=== PATIENT | male | born 1985 | race Caucasian/White ===

== ENCOUNTER 2017-05-31 09:33 | Emergency (ER) | payer SELFPAY ==
--- NOTE | 2017-05-31 09:49 | EDM.PDOC ---
ED HPI GENERAL MEDICAL PROBLEM - General Stated Complaint: RIGHT PINKIE FINGER PAIN Time Seen by Provider: 05/31/17 09:48 Source of Information: Reports: Patient History Limitations: Reports: No Limitations - History of Present Illness INITIAL COMMENTS - FREE TEXT/NARRATIVE: HISTORY AND PHYSICAL: History of present illness: Patient is a 32-year-old male who presents to the emergency room today with complaints of right fifth digit pain. Patient reports that his daughter jumped off couch and landed in his hands resulting in jamming his affected finger. Since this occurred he has had increased pain, swelling, and limited flexion. Patient denies any chest pain, shortness of breath, change in vision, nausea, vomiting or diarrhea. Denies any previous injury to the affected extremity. Review of systems: As per history of present illness and below otherwise all systems reviewed and negative. Past medical history: As per history of present illness and as reviewed below otherwise noncontributory. Surgical history: As per history of present illness and as reviewed below otherwise noncontributory. Social history: No reported history of drug or alcohol abuse. Family history: As per history of present illness and as reviewed below otherwise noncontributory. Physical exam: Gen.: Nontoxic-appearing 32-year-old male. We'll do speak in full sentences without shortness of breath. Alert and oriented HEENT: Atraumatic, normocephalic, pupils reactive, negative for conjunctival pallor or scleral icterus, mucous membranes moist, throat clear, neck supple, nontender, trachea midline. Lungs: Clear to auscultation, breath sounds equal bilaterally, chest nontender. Heart: S1S2, regular rate and rhythm Abdomen: Soft, nondistended, nontender. Negative for masses. Negative for costovertebral tenderness. Pelvis: Stable nontender. Genitourinary: Deferred. Rectal: Deferred. Extremities/Skin: Mild swelling noted to the right fifth digit. Increased pain with flexion of the affected finger. Skin is intact, warm, dry. negative for cords or calf pain. Neurovascular unremarkable. Neuro: Awake, alert, oriented. Cranial nerves II through XII unremarkable. Cerebellum unremarkable. Motor and sensory unremarkable throughout. Exam nonfocal. Discussed radiology findings with patient. Started to use the spoon splint and connor tape for comfort. Like the patient to follow-up with the orthopedic provider, patient voices understanding. For the patient something stronger than Tylenol and/or ibuprofen, patient declined at this time. Patient voices understanding and denies any further questions at this time, discharge pending. Diagnostics: X-ray fifth digit of right hand Therapeutics: Ice, spoon splint and connor tape Impression: Non-displaced fracture of right 5th digit Plan: 1. Please use the spoon splint as directed and discussed. 2. Apply ice to the affected area and allowed to rest. 3. Please take Tylenol and/or ibuprofen as directed for pain control. 4. Follow-up with your primary care provider in the next 1-2 days. He continued to have problems with the affected extremity please follow-up with orthopedics. Return to the ED as needed as discussed. Definitive disposition and diagnosis as appropriate pending reevaluation and review of above. Onset: Today Onset Date: 05/31/17 Right 5-Little finger Pain Score (Numeric/FACES): 6 - Related Data Allergies Allergy/AdvReac Type Severity Reaction Status Date / Time amoxicillin Allergy Airway Verified 05/31/17 10:00 Tightness clindamycin Allergy Anaphylactic Verified 05/31/17 10:00 Shock Penicillins Allergy Anaphylactic Verified 05/31/17 10:00 Shock Home Meds: Home Meds . 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 Cardiovascular History: Reports: Hypertension - Past Surgical History Musculoskeletal Surgical History: Reports: Other (See Below) Social & Family History - Family History Family Medical History: Noncontributory - Tobacco Use Smoking Status *Q: Current Every Day Smoker Years of Tobacco use: 10 Packs/Tins Daily: 0.5 - Caffeine Use Caffeine Use: Reports: None - Recreational Drug Use Recreational Drug Use: No ED ROS GENERAL - Review of Systems Review Of Systems: ROS reveals no pertinent complaints other than HPI. ED EXAM, GENERAL - Physical Exam Exam: See Below (See dictation) Course - Vital Signs Last Recorded V/S: Last Vital Signs Temp 35.8 C 05/31/17 09:55 Pulse 74 05/31/17 09:55 Resp 16 05/31/17 09:55 BP 145/104 H 05/31/17 09:55 Pulse Ox 97 05/31/17 09:55 Departure - Departure Time of Disposition: 10:20 Disposition: Home, Self-Care 01 Clinical Impression: Nondisplaced fracture of phalanx of finger of right hand Finger injury Qualifiers: Encounter type: initial encounter Laterality: right Qualified Code(s): S69.91XA - Unspecified injury of right wrist, hand and finger(s), initial encounter - Discharge Information Referrals: PCP,None [Primary Care Provider] - Additional Instructions: My general discharge The following information is given to patients seen in the emergency department who are being discharged to home. This information is to outline your options for follow-up care. We provide all patients seen in our emergency department with a follow-up referral. The need for follow-up, as well as the timing and circumstances, are variable depending upon the specifics of your emergency department visit. If you don't have a primary care physician on staff, we will provide you with a referral. We always advise you to contact your personal physician following an emergency department visit to inform them of the circumstance of the visit and for follow-up with them and/or the need for any referrals to a consulting specialist. The emergency department will also refer you to a specialist when appropriate. This referral assures that you have the opportunity for follow-up care with a specialist. All of these measure are taken in an effort to provide you with optimal care, which includes your follow-up. Under all circumstances we always encourage you to contact your private physician who remains a resource for coordinating your care. When calling for follow-up care, please make the office aware that this follow-up is from your recent emergency room visit. If for any reason you are refused follow-up, please contact the [facility] Emergency Department at and asked to speak to the emergency department charge nurse. [facility] [address] [place] [id number] [facility] - [facility] Professional Building [address] [place] [address], [address] [place] [address] 1. Please use the spoon splint as directed and discussed. 2. Apply ice to the affected area and allowed to rest. 3. Please take Tylenol and/or ibuprofen as directed for pain control. 4. Follow-up with your primary care provider in the next 1-2 days. If you continue to have problems with the affected extremity please follow-up with orthopedics. Return to the ED as needed as discussed.
--- NOTE | 2017-05-31 11:14 | CR ---
EXAMINATION: Right hand, fifth digit HISTORY: Injury COMPARISON: 09/27/2008 TECHNIQUE: 3 views FINDINGS/IMPRESSION: There is a small nondisplaced dorsal plate fracture involving the proximal metap hysis of the distal fifth phalanx. Screw and plate hardware is noted fixating a well-healed fifth met acarpal fracture. Remaining osseous structures and joint spaces appear grossly intact.
[2017-05-31 11:49] VITALS: BP 142/101
== END 2017-05-31 11:50 | disposition home or self-care (01) ==
LOC: MW.ED 09:33
DX: S62.666A Nondisplaced fracture of distal phalanx of right little finger, initial encounter for closed fracture (principal); I10 Essential (primary) hypertension; Z88.0 Allergy status to penicillin; Z88.1 Allergy status to other antibiotic agents; W52.XXXA Crushed, pushed or stepped on by crowd or human stampede, initial encounter
CPT/HCPCS: 73140-26-F9; 73140-F9; 99282; 99283

== ENCOUNTER 2017-10-27 11:23 | Emergency (ER) | payer SELFPAY ==
[2017-10-27 11:49] VITALS: BP 139/101
--- NOTE | 2017-10-27 12:04 | EDM.PDOC ---
ED HPI GENERAL MEDICAL PROBLEM - General Chief Complaint: Lower Extremity Injury/Pain Stated Complaint: R LEG PAIN Time Seen by Provider: 10/27/17 11:32 Source of Information: Reports: Patient History Limitations: Reports: No Limitations - History of Present Illness INITIAL COMMENTS - FREE TEXT/NARRATIVE: HISTORY AND PHYSICAL: History of present illness: Patient is a 32-year-old male who presents to the emergency room today with complaints of right knee pain. He states he was ambulating and "twisted wrong" and felt immediate pain to his right lateral knee. Immediately after the injury he states he was unable to bear weight on it. Since that time he has taken Tylenol and ibuprofen and still has had no relief. Denies any numbness or tingling to the affected extremity. Denies any previous injury, trauma or surgeries to the affected extremity. Review of systems: As per history of present illness and below otherwise all systems reviewed and negative. Past medical history: As per history of present illness and as reviewed below otherwise noncontributory. Surgical history: As per history of present illness and as reviewed below otherwise noncontributory. Social history: No reported history of drug or alcohol abuse. Family history: As per history of present illness and as reviewed below otherwise noncontributory. Physical exam: General: Developed and well-nourished 32-year-old male. Alert and oriented. Nontoxic appearing and in no acute distress. HEENT: Atraumatic, normocephalic, pupils reactive, negative for conjunctival pallor or scleral icterus, mucous membranes moist, throat clear, neck supple, nontender, trachea midline. Lungs: Clear to auscultation, breath sounds equal bilaterally, chest nontender. Heart: S1S2, regular, negative for clicks, rubs, or JVD. Abdomen: Soft, nondistended, nontender. Negative for masses or hepatosplenomegaly. Negative for costovertebral tenderness. Pelvis: Stable nontender. Genitourinary: Deferred. Rectal: Deferred. Extremities: Atraumatic, moves all extremities per self, good flexion and extension of the right knee and ankle. No Achilles tendon involvement. Mild tenderness to the right lateral knee. No knee instability noted. Strong pedal pulses bilaterally. He is negative for cords or calf pain. Neurovascular unremarkable. Skin: No soft tissue swelling or redness noted. Intact, warm, dry. Neuro: Awake, alert, oriented. Cranial nerves II through XII unremarkable. Cerebellum unremarkable. Motor and sensory unremarkable throughout. Exam nonfocal. X-ray shows no acute abnormality, dislocation or fracture. There is no soft tissue swelling or joint effusion. We'll place the patient in a knee immobilizer and offered crutches. Prescription for tramadol, one tab every 4-6 hours as needed, dispense 20, no refill. If the patient continues to have pain he may need to follow up with orthopedic provider for further imaging. He voices understanding and is agreeable to plan of care. He denies any further questions at this time. Diagnostics: Right knee x-ray Therapeutics: Knee immobilizer, crutches, ice Impression: Right knee injury Plan: 1. Tramadol one tab every 4-6 hours as needed. This medication may cause drowsiness so do not take it while driving or needing to be functioning at work. He may take Tylenol and/or ibuprofen if needed. Rest, ice and elevated the extremity for the next 3-5 days. 2. Please use the crutches and splint for the next 3-5 days. 3. Follow-up with the orthopedic provider as we discussed. Return to the ED as needed and as discussed. Definitive disposition and diagnosis as appropriate pending reevaluation and review of above. Right Knee Pain Score (Numeric/FACES): 8 - Related Data Allergies Allergy/AdvReac Type Severity Reaction Status Date / Time amoxicillin Allergy Airway Verified 10/27/17 11:49 Tightness clindamycin Allergy Anaphylactic Verified 10/27/17 11:49 Shock Penicillins Allergy Anaphylactic Verified 10/27/17 11:49 Shock Home Meds: Home Meds . 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 Cardiovascular History: Reports: Hypertension - Past Surgical History Musculoskeletal Surgical History: Reports: Other (See Below) Social & Family History - Family History Family Medical History: Noncontributory - Tobacco Use Smoking Status *Q: Never Smoker Years of Tobacco use: 10 Packs/Tins Daily: 0.5 Used Tobacco, but Quit: No Second Hand Smoke Exposure: No - Caffeine Use Caffeine Use: Reports: Coffee - Alcohol Use Days Per Week of Alcohol Use: 1 Number of Drinks Per Day: 3 Total Drinks Per Week: 3 - Recreational Drug Use Recreational Drug Use: No Review of Systems - Review of Systems Review Of Systems: ROS reveals no pertinent complaints other than HPI. ED EXAM, GENERAL - Physical Exam Exam: See Below (See dictation) Course - Vital Signs Last Recorded V/S: Last Vital Signs Temp 98.7 F 10/27/17 11:48 Pulse 93 10/27/17 11:48 Resp 20 10/27/17 11:48 BP 139/101 H 10/27/17 11:48 Pulse Ox 98 10/27/17 11:48 - Orders/Labs/Meds Orders: Active Orders 24 hr Category Date Time Status Knee 3V Rt [CR] Stat Exams 10/27/17 11:57 Ordered DME for Discharge [COMM] Stat Oth 10/27/17 12:53 Ordered Departure - Departure Time of Disposition: 12:56 Disposition: Home, Self-Care 01 Clinical Impression: Knee injury Qualifiers: Encounter type: initial encounter Laterality: right Qualified Code(s): S89.91XA - Unspecified injury of right lower leg, initial encounter - Discharge Information Referrals: PCP,None [Primary Care Provider] - Forms: ED Department Discharge Additional Instructions: My general discharge The following information is given to patients seen in the emergency department who are being discharged to home. This information is to outline your options for follow-up care. We provide all patients seen in our emergency department with a follow-up referral. The need for follow-up, as well as the timing and circumstances, are variable depending upon the specifics of your emergency department visit. If you don't have a primary care physician on staff, we will provide you with a referral. We always advise you to contact your personal physician following an emergency department visit to inform them of the circumstance of the visit and for follow-up with them and/or the need for any referrals to a consulting specialist. The emergency department will also refer you to a specialist when appropriate. This referral assures that you have the opportunity for follow-up care with a specialist. All of these measure are taken in an effort to provide you with optimal care, which includes your follow-up. Under all circumstances we always encourage you to contact your private physician who remains a resource for coordinating your care. When calling for follow-up care, please make the office aware that this follow-up is from your recent emergency room visit. If for any reason you are refused follow-up, please contact the [facility] Emergency Department at and asked to speak to the emergency department charge nurse. [facility] [address], [place] [address] [facility] - Orthopedic Clinic Professional Building [address] [place] [address], [address] [place] [address] 1. Tramadol one tab every 4-6 hours as needed. This medication may cause drowsiness so do not take it while driving or needing to be functioning at work. He may take Tylenol and/or ibuprofen if needed. Rest, ice and elevated the extremity for the next 3-5 days. 2. Please use the crutches and splint for the next 3-5 days. 3. Follow-up with the orthopedic provider as we discussed. Return to the ED as needed and as discussed. - My Orders Last 24 Hours: My Active Orders 10/27/17 11:57 Knee 3V Rt [CR] Stat 10/27/17 12:53 DME for Discharge [COMM] Stat - Assessment/Plan Last 24 Hours: My Active Orders 10/27/17 11:57 Knee 3V Rt [CR] Stat 10/27/17 12:53 DME for Discharge [COMM] Stat
--- NOTE | 2017-10-27 13:20 | CR ---
EXAMINATION: Right knee HISTORY: Pain COMPARISON: None TECHNIQUE: 3 views FINDINGS/IMPRESSION: There is no acute osseous abnormality, dislocation, or fracture. Bone mineraliza tion and joint spaces are preserved. No soft tissue swelling or joint effusion.
== END 2017-10-27 13:25 | disposition home or self-care (01) ==
LOC: MW.ED 11:23
DX: S89.91XA Unspecified injury of right lower leg, initial encounter (principal); I10 Essential (primary) hypertension; Z88.1 Allergy status to other antibiotic agents; Z88.0 Allergy status to penicillin; X50.9XXA Other and unspecified overexertion or strenuous movements or postures, initial encounter
CPT/HCPCS: 73562-26-RT; 73562-RT; 99283; 99284

== ENCOUNTER 2018-11-18 09:15 | Emergency (ER) | payer BC ==
--- NOTE | 2018-11-18 10:34 | EDM.PDOC ---
ED HPI GENERAL MEDICAL PROBLEM - General Chief Complaint: ENT Problem Stated Complaint: STREP THROAT Time Seen by Provider: 11/18/18 09:38 Source of Information: Reports: Patient History Limitations: Reports: No Limitations - History of Present Illness INITIAL COMMENTS - FREE TEXT/NARRATIVE: History of present illness: Patient has had 2 days of sore throat that feels like strep. They've been running fevers and chills with no other symptoms. She denies any cough, shortness of breath, congestion or difficulty breathing or swallowing. Review of systems: As per history of present illness and below otherwise all systems reviewed and negative. Past medical history: As per history of present illness and as reviewed below otherwise noncontributory. Surgical history: As per history of present illness and as reviewed below otherwise noncontributory. Social history: No reported history of drug or alcohol abuse. Family history: As per history of present illness and as reviewed below otherwise noncontributory. Physical exam: General: Well developed, well nourished in NAD HEENT: Atraumatic, normocephalic, pupils reactive, negative for conjunctival pallor or scleral icterus, mucous membranes moist, throat clear, neck supple, nontender, trachea midline. Lungs: Clear to auscultation, breath sounds equal bilaterally, chest nontender. Heart: S1S2, regular, negative for clicks, rubs, or JVD. Abdomen: NABS, Soft, nondistended, nontender. Negative for masses or hepatosplenomegaly. Negative for costovertebral tenderness. Pelvis: Stable nontender. Genitourinary: Deferred. Rectal: Deferred. Extremities: Atraumatic, negative for cords or calf pain. Neurovascular unremarkable. Neuro: Awake, alert, oriented. Cranial nerves II through XII unremarkable. Cerebellum unremarkable. Motor and sensory unremarkable throughout. Exam nonfocal. Skin:warm and dry Diagnostics: Rapid strep positive Therapeutics: None ED Course: Unremarkable Impression: Strep pharyngitis Prescriptions: Z-Julien Plan: Take meds as directed, follow up with your primary care physician, return to ER if symptoms worsen or change. Definitive disposition and diagnosis as appropriate pending reevaluation and review of above. 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 Cardiovascular History: Reports: Hypertension - Past Surgical History Musculoskeletal Surgical History: Reports: Other (See Below) Social & Family History - Family History Family Medical History: Noncontributory - Caffeine Use Caffeine Use: Reports: Coffee ED ROS ENT - Review of Systems Review Of Systems: ROS reveals no pertinent complaints other than HPI. ED EXAM, ENT - Physical Exam Exam: Not Obtained (See history of present illness) Departure - Departure Time of Disposition: 10:33 Disposition: Home, Self-Care 01 Condition: Good Clinical Impression: Strep pharyngitis - Discharge Information *PRESCRIPTION DRUG MONITORING PROGRAM REVIEWED*: No *COPY OF PRESCRIPTION DRUG MONITORING REPORT IN PATIENT MARIO: No Prescriptions: Azithromycin [Zithromax] 250 mg PO DAILY #6 tab Referrals: Johnson Henderson MD [Primary Care Provider] - Additional Instructions: The following information is given to patients seen in the emergency department who are being discharged to home. This information is to outline your options for follow-up care. We provide all patients seen in our emergency department with a follow-up referral. The need for follow-up, as well as the timing and circumstances, are variable depending upon the specifics of your emergency department visit. If you don't have a primary care physician on staff, we will provide you with a referral. We always advise you to contact your personal physician following an emergency department visit to inform them of the circumstance of the visit and for follow-up with them and/or the need for any referrals to a consulting specialist. The emergency department will also refer you to a specialist when appropriate. This referral assures that you have the opportunity for follow-up care with a specialist. All of these measure are taken in an effort to provide you with optimal care, which includes your follow-up. Under all circumstances we always encourage you to contact your private physician who remains a resource for coordinating your care. When calling for follow-up care, please make the office aware that this follow-up is from your recent emergency room visit. If for any reason you are refused follow-up, please contact the [facility] Emergency Department at and asked to speak to the emergency department charge nurse. Take meds as directed, follow up with your primary care physician, return to ER if symptoms worsen or change. [facility] [place] [id number]
[2018-11-18 12:59] VITALS: BP 148/88
== END 2018-11-18 10:45 | disposition home or self-care (01) ==
LOC: MW.ED 09:15
DX: J02.0 Streptococcal pharyngitis (principal); I10 Essential (primary) hypertension; Z88.1 Allergy status to other antibiotic agents; Z88.0 Allergy status to penicillin
CPT/HCPCS: 87880-QW; 99283

== ENCOUNTER 2019-01-20 10:01 | Emergency (ER) | payer SELFPAY ==
[2019-01-20] MEDS ORDERED: Ibuprofen 800 MG Tab PO ONE (10:29)
--- NOTE | 2019-01-20 10:31 | EDM.PDOC ---
ED HPI GENERAL MEDICAL PROBLEM - General Chief Complaint: Upper Extremity Injury/Pain Stated Complaint: RT HAND POSSIBLY BROKE Time Seen by Provider: 01/20/19 10:19 Source of Information: Reports: Patient History Limitations: Reports: No Limitations - History of Present Illness INITIAL COMMENTS - FREE TEXT/NARRATIVE: History of present illness: []Patient was told he apparently punched a door last night and arrives with swelling and pain of his right hand. He currently has a plate and screws in this hand, from a previous injury. Review of systems: As per history of present illness and below otherwise all systems reviewed and negative. Past medical history: As per history of present illness and as reviewed below otherwise noncontributory. Surgical history: As per history of present illness and as reviewed below otherwise noncontributory. Social history: No reported history of drug or alcohol abuse. Family history: As per history of present illness and as reviewed below otherwise noncontributory. Physical exam: General: Well developed, well nourished in NAD HEENT: Atraumatic, normocephalic, pupils reactive, negative for conjunctival pallor or scleral icterus, mucous membranes moist, throat clear, neck supple, nontender, trachea midline. Lungs: Clear to auscultation, breath sounds equal bilaterally, chest nontender. Heart: S1S2, regular, negative for clicks, rubs, or JVD. Abdomen: NABS, Soft, nondistended, nontender. Negative for masses or hepatosplenomegaly. Negative for costovertebral tenderness. Pelvis: Stable nontender. Genitourinary: Deferred. Rectal: Deferred. Extremities: Swelling over the fifth metacarpal with ecchymosis noted is brisk capillary refill distally and sensation is intact, negative for cords or calf pain. Neurovascular unremarkable. Neuro: Awake, alert, oriented. Cranial nerves II through XII unremarkable. Cerebellum unremarkable. Motor and sensory unremarkable throughout. Exam nonfocal. Skin:warm and dry Diagnostics: X-ray right hand-distal fifth metacarpal fracture Therapeutics: Ibuprofen on a splint ED Course: Stable Impression: Right Distal ulnar metacarpal fracture Prescriptions: Diclofenac Plan: Follow-up with hand surgery Definitive disposition and diagnosis as appropriate pending reevaluation and review of above. 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 Cardiovascular History: Reports: Hypertension - Infectious Disease History Infectious Disease History: Reports: Chicken Pox - Past Surgical History Musculoskeletal Surgical History: Reports: Other (See Below) Social & Family History - Family History Family Medical History: Noncontributory - Caffeine Use Caffeine Use: Reports: Coffee Review of Systems - Review of Systems Review Of Systems: ROS reveals no pertinent complaints other than HPI. ED EXAM, GENERAL - Physical Exam Exam: See Below (See history of present illness) Course - Vital Signs Last Recorded V/S: Last Vital Signs Temp 97.8 F 01/20/19 10:45 Pulse 96 01/20/19 10:45 Resp 16 01/20/19 10:45 BP 155/102 H 01/20/19 10:45 Pulse Ox 97 01/20/19 10:45 - Orders/Labs/Meds Orders: Active Orders 24 hr Category Date Time Status Hand Comp Min 3V Rt [CR] Stat Exams 01/20/19 10:19 Taken Meds: Medications Discontinued Medications Generic Name Dose Route Start Last Admin Trade Name Freq PRN Reason Stop Dose Admin Ibuprofen 800 mg 01/20/19 10:29 Motrin PO 01/20/19 10:30 ONETIME ONE Departure - Departure Time of Disposition: 11:09 Disposition: Home, Self-Care 01 Condition: Good Clinical Impression: Fracture of fifth metacarpal bone of right hand Qualifiers: Encounter type: initial encounter Fracture type: closed Metacarpal location: unspecified portion of metacarpal Fracture alignment: nondisplaced Qualified Code(s): S62.306A - Unspecified fracture of fifth metacarpal bone, right hand, initial encounter for closed fracture - Discharge Information *PRESCRIPTION DRUG MONITORING PROGRAM REVIEWED*: No *COPY OF PRESCRIPTION DRUG MONITORING REPORT IN PATIENT MARIO: No Prescriptions: Diclofenac Sodium [Voltaren] 75 mg PO BIDMEALS PRN #20 tab.cr PRN Reason: Pain Referrals: PCP,None [Primary Care Provider] - Forms: ED Department Discharge Additional Instructions: The following information is given to patients seen in the emergency department who are being discharged to home. This information is to outline your options for follow-up care. We provide all patients seen in our emergency department with a follow-up referral. The need for follow-up, as well as the timing and circumstances, are variable depending upon the specifics of your emergency department visit. If you don't have a primary care physician on staff, we will provide you with a referral. We always advise you to contact your personal physician following an emergency department visit to inform them of the circumstance of the visit and for follow-up with them and/or the need for any referrals to a consulting specialist. The emergency department will also refer you to a specialist when appropriate. This referral assures that you have the opportunity for follow-up care with a specialist. All of these measure are taken in an effort to provide you with optimal care, which includes your follow-up. Under all circumstances we always encourage you to contact your private physician who remains a resource for coordinating your care. When calling for follow-up care, please make the office aware that this follow-up is from your recent emergency room visit. If for any reason you are refused follow-up, please contact the [facility] Emergency Department at and asked to speak to the emergency department charge nurse. Follow-up with hand surgery, call for an appointment [facility] Specialty Care - Plastic Surgery Professional Building [address] [place] [address], [address] [place] [address] - My Orders Last 24 Hours: My Active Orders 01/20/19 10:19 Hand Comp Min 3V Rt [CR] Stat - Assessment/Plan Last 24 Hours: My Active Orders 01/20/19 10:19 Hand Comp Min 3V Rt [CR] Stat
--- NOTE | 2019-01-20 11:33 | CR ---
INDICATION: Pain in right hand after punching a door TECHNIQUE: X-ray right hand, three views COMPARISON: Hand radiograph 09/27/2008 FINDINGS: There are postsurgical changes of prior internal fixation of the right metacarpal. There is a new mildly comminuted angulated fracture of the distal 5th metacarpal (boxer`s fracture). Ventral angulation of the distal fragment. The alignment is otherwise normal. No additional fractures are seen. No radiopaque foreign body is visualized. Soft tissue swelling is noted. IMPRESSION: 1. Acute mildly comminuted and angulated fracture of the distal 5th metacarpal (boxer`s fracture). 2. Stable postsurgical changes of internal fixation of the proximal to mid 5th metacarpal. Dictated by Mandy Pulido MD @ 01/20/2019 11:32:10 AM Dictated by: Mandy Pulido MD @ 01/20/2019 11:32:14 (Electronically Signed)
[2019-01-20 11:52] VITALS: BP 146/85
== END 2019-01-20 11:26 | disposition home or self-care (01) ==
LOC: MW.ED 10:01
DX: S62.306A Unspecified fracture of fifth metacarpal bone, right hand, initial encounter for closed fracture (principal); Z88.1 Allergy status to other antibiotic agents; Z88.0 Allergy status to penicillin; W22.8XXA Striking against or struck by other objects, initial encounter
CPT/HCPCS: 29125; 73130; 99283; A9270

== ENCOUNTER 2019-06-01 18:04 | Emergency (ER) | payer BC ==
--- NOTE | 2019-06-01 18:32 | EDM.PDOC ---
ED HPI GENERAL MEDICAL PROBLEM - General Chief Complaint: Laceration Stated Complaint: PT HURT LT FOOT Time Seen by Provider: 06/01/19 18:15 Source of Information: Reports: Patient History Limitations: Reports: No Limitations - History of Present Illness INITIAL COMMENTS - FREE TEXT/NARRATIVE: History of present illness: []Patient had a hair clippers case fall off a shelf and it unlatched and the hair clipper blade cut into the top of his foot proximally hour ago. Some swelling on the top of his foot and he states, "there was blood gushing everywhere". Patient's foot is painful throughout not just in the area where the blade cut him. Should states tetanus is up-to-date. He denies any other injuries. Review of systems: As per history of present illness and below otherwise all systems reviewed and negative. Past medical history: As per history of present illness and as reviewed below otherwise noncontributory. Surgical history: As per history of present illness and as reviewed below otherwise noncontributory. Social history: No reported history of drug or alcohol abuse. Family history: As per history of present illness and as reviewed below otherwise noncontributory. Physical exam: General: Well developed, well nourished in NAD HEENT: Atraumatic, normocephalic, pupils reactive, negative for conjunctival pallor or scleral icterus, mucous membranes moist, throat clear, neck supple, nontender, trachea midline. Lungs: Clear to auscultation, breath sounds equal bilaterally, chest nontender. Heart: S1S2, regular, negative for clicks, rubs, or JVD. Abdomen: NABS, Soft, nondistended, nontender. Negative for masses or hepatosplenomegaly. Negative for costovertebral tenderness. Pelvis: Stable nontender. Genitourinary: Deferred. Rectal: Deferred. Extremities: Left dorsal foot with marked swelling from a hematoma, there are a few blade celestin on the foot with scabs but no active bleeding, patient moves toes sensations intact and distal capillary refill is brisk. negative for cords or calf pain. Neurovascular unremarkable. Neuro: Awake, alert, oriented. Cranial nerves II through XII unremarkable. Cerebellum unremarkable. Motor and sensory unremarkable throughout. Exam nonfocal. Skin:warm and dry Diagnostics: X-ray left foot-fracture Therapeutics: Declines pain meds he took 800 of ibuprofen 3 hours prior to arrival ED Course: Stable Impression: Hematoma left foot Prescriptions: Tramadol Plan: Take meds as directed, follow up with your primary care physician, return to ER if symptoms worsen or change. Definitive disposition and diagnosis as appropriate pending reevaluation and review of above. left foot Pain Score (Numeric/FACES): 9 - Related Data Allergies Allergy/AdvReac Type Severity Reaction Status Date / Time amoxicillin Allergy Airway Verified 06/08/19 00:21 Tightness clindamycin Allergy Anaphylactic Verified 06/08/19 00:21 Shock losartan Allergy Airway Verified 06/08/19 00:23 Tightness Penicillins Allergy Anaphylactic Verified 06/08/19 00:21 Shock Home Meds: Home Meds Ibuprofen 800 mg PO TID 06/01/19 [History] traMADol HCl [Tramadol HCl] 50 mg PO Q6H PRN #16 tablet 06/01/19 [Rx] amLODIPine Besylate [Amlodipine Besylate] 10 mg PO DAILY 06/08/19 [History] Past Medical History HEENT History: Reports: Other (See Below) 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 Cardiovascular History: Reports: Hypertension - Infectious Disease History Infectious Disease History: Reports: Chicken Pox - Past Surgical History Musculoskeletal Surgical History: Reports: Other (See Below) Social & Family History - Family History Family Medical History: Noncontributory - Tobacco Use Smoking Status *Q: Current Every Day Smoker Years of Tobacco use: 15 Packs/Tins Daily: 0.2 - Caffeine Use Caffeine Use: Reports: Coffee - Recreational Drug Use Recreational Drug Use: No ED ROS GENERAL - Review of Systems Review Of Systems: See Below ED EXAM, SKIN/RASH Exam: See Below Course - Vital Signs Last Recorded V/S: Last Vital Signs Temp 98 F 06/01/19 18:12 Pulse 74 06/01/19 19:40 Resp 18 06/01/19 19:40 BP 154/101 H 06/01/19 19:40 Pulse Ox 97 06/01/19 19:40 Departure - Departure Time of Disposition: 19:40 Disposition: Home, Self-Care 01 Condition: Good Clinical Impression: Traumatic hematoma of left foot Qualifiers: Encounter type: initial encounter Qualified Code(s): S90.32XA - Contusion of left foot, initial encounter - Discharge Information *PRESCRIPTION DRUG MONITORING PROGRAM REVIEWED*: No *COPY OF PRESCRIPTION DRUG MONITORING REPORT IN PATIENT MARIO: No Prescriptions: traMADol HCl [Tramadol HCl] 50 mg PO Q6H PRN #16 tablet PRN Reason: Pain Instructions: Foot Pain, Hematoma, [id number] Referrals: PCP,None [Primary Care Provider] - Forms: ED Department Discharge Additional Instructions: The following information is given to patients seen in the emergency department who are being discharged to home. This information is to outline your options for follow-up care. We provide all patients seen in our emergency department with a follow-up referral. The need for follow-up, as well as the timing and circumstances, are variable depending upon the specifics of your emergency department visit. If you don't have a primary care physician on staff, we will provide you with a referral. We always advise you to contact your personal physician following an emergency department visit to inform them of the circumstance of the visit and for follow-up with them and/or the need for any referrals to a consulting specialist. The emergency department will also refer you to a specialist when appropriate. This referral assures that you have the opportunity for follow-up care with a specialist. All of these measure are taken in an effort to provide you with optimal care, which includes your follow-up. Under all circumstances we always encourage you to contact your private physician who remains a resource for coordinating your care. When calling for follow-up care, please make the office aware that this follow-up is from your recent emergency room visit. If for any reason you are refused follow-up, please contact the [facility] Emergency Department at and asked to speak to the emergency department charge nurse. Take meds as directed, follow up with your primary care physician, return to ER if symptoms worsen or change. [facility] [address] [place] [id number]
--- NOTE | 2019-06-01 19:23 | CR ---
INDICATION: Foot pain, injury TECHNIQUE: Foot radiograph 3 views left COMPARISON: None FINDINGS: Bone: No acute fractures or aggressive bone lesions are identified. Joint: The visualized hindfoot, midfoot, and forefoot joints are unremarkable in appearance. No significant ankle effusion is seen. Soft tissue: Unremarkable. No radiopaque foreign bodies are seen. IMPRESSION: 1. No acute osseous injuries or abnormalities are noted. Dictated by: Beny Barros MD @ 06/01/2019 19:22:07 (Electronically Signed)
[2019-06-01 19:41] VITALS: BP 154/101; PULSE 74
== END 2019-06-01 19:41 | disposition home or self-care (01) ==
LOC: MW.ED 18:04
DX: S90.32XA Contusion of left foot, initial encounter (principal); I10 Essential (primary) hypertension; F17.210 Nicotine dependence, cigarettes, uncomplicated; Z88.8 Allergy status to other drugs, medicaments and biological substances; Z88.1 Allergy status to other antibiotic agents; Z88.0 Allergy status to penicillin; W17.89XA Other fall from one level to another, initial encounter; W26.8XXA Contact with other sharp object(s), not elsewhere classified, initial encounter
CPT/HCPCS: 73630-26-LT; 73630-LT; 99283; 99283-25

== ENCOUNTER 2019-06-08 00:12 | Emergency (ER) | payer BC ==
[2019-06-08] MEDS ORDERED: Sodium Chloride 0.9% 10 ML Syringe FLUSH PRN (00:39)
[2019-06-08] MEDS ORDERED: Aspirin 81 MG Tab.Chew PO ONE (00:39)
[2019-06-08] MEDS ORDERED: Sodium Chloride 0.9% 2.5 ML Syringe FLUSH PRN (00:39)
--- NOTE | 2019-06-08 00:40 | EDM.PDOC ---
ED HPI GENERAL MEDICAL PROBLEM - General Chief Complaint: Chest Pain Stated Complaint: BLOOD PRESSURE CONCERNS, LEFT ARM PAIN Time Seen by Provider: 06/08/19 00:34 - History of Present Illness INITIAL COMMENTS - FREE TEXT/NARRATIVE: HISTORY AND PHYSICAL: History of present illness: Patient is a 34-year-old white male presents with a concern of substernal chest discomfort and left arm pain he was recently diagnosed with hypertension he's been compliant with his medications he denies drugs denies history of known coronary artery disease. Review of systems: As per history of present illness and below otherwise all systems reviewed and negative. Past medical history: As per history of present illness and as reviewed below otherwise noncontributory. Surgical history: As per history of present illness and as reviewed below otherwise noncontributory. Social history: No reported history of drug or alcohol abuse. Family history: As per history of present illness and as reviewed below otherwise noncontributory. Physical exam: HEENT: Atraumatic, normocephalic, pupils reactive, negative for conjunctival pallor or scleral icterus, mucous membranes moist, throat clear, neck supple, nontender, trachea midline. Lungs: Clear to auscultation, breath sounds equal bilaterally, chest nontender. Heart: S1S2, regular, negative for clicks, rubs, or JVD. Abdomen: Soft, nondistended, nontender. Negative for masses or hepatosplenomegaly. Negative for costovertebral tenderness. Pelvis: Stable nontender. Genitourinary: Deferred. Rectal: Deferred. Extremities: Atraumatic, negative for cords or calf pain. Neurovascular unremarkable. Neuro: Awake, alert, oriented. Cranial nerves II through XII unremarkable. Cerebellum unremarkable. Motor and sensory unremarkable throughout. Exam nonfocal. Diagnostics: CBC CMP troponin PT/INR chest x-ray EKG Therapeutics: IV O2 monitor aspirin 324 mg by mouth Impression: #1 chest pain #2 hypertension Definitive disposition and diagnosis as appropriate pending reevaluation and review of above. Upper Chest Pain Score (Numeric/FACES): 6 - Related Data Allergies Allergy/AdvReac Type Severity Reaction Status Date / Time amoxicillin Allergy Airway Verified 06/08/19 00:21 Tightness clindamycin Allergy Anaphylactic Verified 06/08/19 00:21 Shock losartan Allergy Airway Verified 06/08/19 00:23 Tightness Penicillins Allergy Anaphylactic Verified 06/08/19 00:21 Shock Home Meds: Home Meds Ibuprofen 800 mg PO TID 06/01/19 [History] traMADol HCl [Tramadol HCl] 50 mg PO Q6H PRN #16 tablet 06/01/19 [Rx] amLODIPine Besylate [Amlodipine Besylate] 10 mg PO DAILY 06/08/19 [History] Past Medical History HEENT History: Reports: Other (See Below) 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 Cardiovascular History: Reports: Hypertension - Infectious Disease History Infectious Disease History: Reports: Chicken Pox - Past Surgical History Musculoskeletal Surgical History: Reports: Other (See Below) Other Musculoskeletal Surgeries/Procedures:: right 5th finger,pins and plates Social & Family History - Family History Family Medical History: Noncontributory - Tobacco Use Smoking Status *Q: Current Every Day Smoker Years of Tobacco use: 12 Packs/Tins Daily: 0.5 - Caffeine Use Caffeine Use: Reports: Coffee, Soda - Recreational Drug Use Recreational Drug Use: Yes Drug Use in Last 12 Months: No Recreational Drug Type: Reports: Marijuana/Hashish ED ROS GENERAL - Review of Systems Review Of Systems: ROS reveals no pertinent complaints other than HPI. ED EXAM, GENERAL - Physical Exam Exam: See Below (The dictation) Course - Vital Signs Last Recorded V/S: Last Vital Signs Temp 36.8 C 06/08/19 00:18 Pulse Resp 18 06/08/19 00:18 BP 172/106 H 06/08/19 00:18 Pulse Ox 97 06/08/19 00:18 - Orders/Labs/Meds Orders: Active Orders 24 hr Category Date Time Status Cardiac Monitoring [RC] . DIRECTED Care 06/08/19 00:38 Active EKG Documentation Completion [RC] STAT Care 06/08/19 00:38 Active Pulse Oximetry [RC] ASDIRECTED Care 06/08/19 00:38 Active Sodium Chloride 0.9% [Saline Flush] Med 06/08/19 00:39 Active 10 ml FLUSH ASDIRECTED PRN Sodium Chloride 0.9% [Saline Flush] Med 06/08/19 00:39 Active 2.5 ml FLUSH ASDIRECTED PRN Saline Lock Insert [OM.PC] Stat Oth 06/08/19 00:38 Ordered Medication Orders Sodium Chloride (Saline Flush) 10 ml FLUSH ASDIRECTED PRN PRN Reason: Keep Vein Open Sodium Chloride (Saline Flush) 2.5 ml FLUSH ASDIRECTED PRN PRN Reason: Keep Vein Open Labs: Laboratory Tests 06/08/19 06/08/19 06/08/19 Range/Units 00:46 00:46 00:46 WBC 6.99 (4.0-11.0) K/uL RBC 4.74 (4.50-5.90) M/uL Hgb 14.7 (13.0-17.0) g/dL Hct 40.7 (38.0-50.0) % MCV 85.9 (80.0-98.0) fL MCH 31.0 (27.0-32.0) pg MCHC 36.1 (31.0-37.0) g/dL RDW Std Deviation 39.6 (28.0-62.0) fl RDW Coeff of Lisa 13 (11.0-15.0) % Plt Count 209 (150-400) K/uL MPV 8.30 (7.40-12.00) fL Neut % (Auto) 39.2 L (48.0-80.0) % Lymph % (Auto) 45.1 H (16.0-40.0) % Osborne % (Auto) 11.7 (0.0-15.0) % Eos % (Auto) 3.7 (0.0-7.0) % Baso % (Auto) 0.3 (0.0-1.5) % Neut # (Auto) 2.7 (1.4-5.7) K/uL Lymph # (Auto) 3.2 H (0.6-2.4) K/uL Osborne # (Auto) 0.8 (0.0-0.8) K/uL Eos # (Auto) 0.3 (0.0-0.7) K/uL Baso # (Auto) 0.0 (0.0-0.1) K/uL INR 0.95 Sodium 142 (136-148) mmol/L Potassium 3.7 (3.5-5.1) mmol/L Chloride 105 (98-107) mmol/L Carbon Dioxide 26.0 (21.0-32.0) mmol/L BUN 16 (7.0-18.0) mg/dL Creatinine 1.1 (0.8-1.3) mg/dL Est Cr Clr Drug Dosing 115.23 mL/min Estimated GFR (MDRD) > 60.0 ml/min Glucose 109 H (74-106) mg/dL Calcium 9.0 (8.5-10.1) mg/dL Total Bilirubin 0.6 (0.2-1.0) mg/dL AST 5 L (15-37) IU/L ALT 24 (14-63) IU/L Alkaline Phosphatase 113 (46-116) U/L Troponin I < 0.050 (0.000-0.056) ng/mL Total Protein 7.6 (6.4-8.2) g/dL Albumin 4.0 (3.4-5.0) g/dL Globulin 3.6 (2.6-4.0) g/dL Albumin/Globulin Ratio 1.1 (0.9-1.6) Meds: Medications Generic Name Dose Route Start Last Admin Trade Name Freq PRN Reason Stop Dose Admin Sodium Chloride 10 ml 06/08/19 00:39 Saline Flush FLUSH ASDIRECTED PRN Keep Vein Open Sodium Chloride 2.5 ml 06/08/19 00:39 Saline Flush FLUSH ASDIRECTED PRN Keep Vein Open Discontinued Medications Generic Name Dose Route Start Last Admin Trade Name Freq PRN Reason Stop Dose Admin Aspirin 324 mg 06/08/19 00:39 06/08/19 00:48 Aspirin PO 06/08/19 00:40 324 mg ONETIME ONE Administration Departure - Departure Time of Disposition: 03:38 Disposition: Home, Self-Care 01 Condition: Good Clinical Impression: Atypical chest pain - Discharge Information Instructions: Chest Wall Pain Referrals: Johnson Henderson MD [Primary Care Provider] - Forms: ED Department Discharge Additional Instructions: The following information is given to patients seen in the emergency department who are being discharged to home. This information is to outline your options for follow-up care. We provide all patients seen in our emergency department with a follow-up referral. The need for follow-up, as well as the timing and circumstances, are variable depending upon the specifics of your emergency department visit. If you don't have a primary care physician on staff, we will provide you with a referral. We always advise you to contact your personal physician following an emergency department visit to inform them of the circumstance of the visit and for follow-up with them and/or the need for any referrals to a consulting specialist. The emergency department will also refer you to a specialist when appropriate. This referral assures that you have the opportunity for followup care with a specialist. All of these measure are taken in an effort to provide you with optimal care, which includes your followup. Under all circumstances we always encourage you to contact your private physician who remains a resource for coordinating your care. When calling for followup care, please make the office aware that this follow-up is from your recent emergency room visit. If for any reason you are refused follow-up, please contact the [facility] emergency department at and asked to speak to the emergency department charge nurse. Continue current meds follow private medical doctor return as needed as discussed - My Orders Last 24 Hours: My Active Orders 06/08/19 00:38 Cardiac Monitoring [RC] . DIRECTED EKG Documentation Completion [RC] STAT Pulse Oximetry [RC] ASDIRECTED Saline Lock Insert [OM.PC] Stat 06/08/19 00:39 Sodium Chloride 0.9% [Saline Flush] 10 ml FLUSH ASDIRECTED PRN Sodium Chloride 0.9% [Saline Flush] 2.5 ml FLUSH ASDIRECTED PRN - Assessment/Plan Last 24 Hours: My Active Orders 06/08/19 00:38 Cardiac Monitoring [RC] . DIRECTED EKG Documentation Completion [RC] STAT Pulse Oximetry [RC] ASDIRECTED Saline Lock Insert [OM.PC] Stat 06/08/19 00:39 Sodium Chloride 0.9% [Saline Flush] 10 ml FLUSH ASDIRECTED PRN Sodium Chloride 0.9% [Saline Flush] 2.5 ml FLUSH ASDIRECTED PRN
[2019-06-08 01:17] LABS: BLOOD UREA NITROGEN,BUN 16 mg/dL (7.0-18.0); CHLORIDE,CL 105 mmol/L (98-107); GLUCOSE RANDOM 109 mg/dL (74-106); POTASSIUM,K 3.7 mmol/L (3.5-5.1); SODIUM,NA 142 mmol/L (136-148)
--- NOTE | 2019-06-08 01:22 | CR ---
INDICATION: Chest pain and dyspnea TECHNIQUE: Chest 1 views COMPARISON: Chest x-ray 06/28/2018 FINDINGS: Cardiovascular and mediastinum: Heart size and vasculature are normal in caliber and appearance. Lungs and pleural spaces: Lungs are clear. No sign of infiltrate or mass. No sign of pleural effusion. No pneumothorax. Bones and soft tissues: No significant findings. IMPRESSION: No acute findings and no significant changes from the prior exam. Dictated by Hussain Kirk MD @ Jun 08 2019 1:20AM Signed by Dr. Hussain Kirk @ Jun 08 2019 1:21AM
[2019-06-08 03:39] VITALS: BP 162/99; PULSE 78
== END 2019-06-08 02:20 | disposition home or self-care (01) ==
LOC: MW.ED 00:12
DX: R07.89 Other chest pain (principal); I10 Essential (primary) hypertension; H91.92 Unspecified hearing loss, left ear; F17.200 Nicotine dependence, unspecified, uncomplicated; Z88.0 Allergy status to penicillin; Z88.1 Allergy status to other antibiotic agents; Z88.8 Allergy status to other drugs, medicaments and biological substances; Z79.899 Other long term (current) drug therapy
CPT/HCPCS: 36415; 71045; 80053; 84484; 85025; 85610; 93005; 99285; A9270; 99284

== ENCOUNTER 2021-09-29 10:11 | Emergency (ER) | payer SELFPAY ==
[2021-09-29 12:29] VITALS: BP 163/119; PULSE 77
== END 2021-09-29 12:28 | disposition home or self-care (01) ==
LOC: MW.ED 10:11
DX: U07.1 COVID-19 (principal); I10 Essential (primary) hypertension; Z88.0 Allergy status to penicillin; Z88.1 Allergy status to other antibiotic agents; Z88.8 Allergy status to other drugs, medicaments and biological substances; Z72.0 Tobacco use
CPT/HCPCS: 87804; 99283; U0002

== ENCOUNTER 2022-07-14 10:20 | Emergency (ER) | payer SELFPAY ==
[2022-07-14] MEDS ORDERED: Ketorolac 60 MG/2 ML SDV IM ONE ×2 (10:31→11:12)
== END 2022-07-14 13:20 | disposition home or self-care (01) ==
LOC: MW.ED 10:20
DX: S69.91XA Unspecified injury of right wrist, hand and finger(s), initial encounter (principal); I10 Essential (primary) hypertension; Z88.0 Allergy status to penicillin; Z88.1 Allergy status to other antibiotic agents; Z88.8 Allergy status to other drugs, medicaments and biological substances; Z79.899 Other long term (current) drug therapy; W20.8XXA Other cause of strike by thrown, projected or falling object, initial encounter
CPT/HCPCS: 29125; 73130; 96372; 99283; J1885

== ENCOUNTER 2022-07-22 11:32 | Emergency (ER) | payer SELFPAY ==
[2022-07-22 13:05] VITALS: BP 175/118; PULSE 83
== END 2022-07-22 13:05 | disposition home or self-care (01) ==
LOC: MW.ED 11:32
DX: S06.0X0A Concussion without loss of consciousness, initial encounter (principal); S01.01XA Laceration without foreign body of scalp, initial encounter; I10 Essential (primary) hypertension; Z88.0 Allergy status to penicillin; Z88.1 Allergy status to other antibiotic agents; W18.09XA Striking against other object with subsequent fall, initial encounter; Y99.0 Civilian activity done for income or pay
CPT/HCPCS: 12002; 99283

== ENCOUNTER 2022-09-26 14:55 | Emergency (ER) | payer OTHER ==
[2022-09-26] MEDS ORDERED: Ibuprofen 600 MG Tab PO ONE (16:07)
[2022-09-26 16:22] VITALS: BP 141/85; PULSE 73
== END 2022-09-26 16:24 | disposition home or self-care (01) ==
LOC: MW.ED 14:55
DX: S50.11XA Contusion of right forearm, initial encounter (principal); I10 Essential (primary) hypertension; Z88.0 Allergy status to penicillin; Z88.1 Allergy status to other antibiotic agents; Z79.899 Other long term (current) drug therapy; W22.8XXA Striking against or struck by other objects, initial encounter; Y92.89 Other specified places as the place of occurrence of the external cause; Y99.0 Civilian activity done for income or pay
CPT/HCPCS: 73090-26-RT; 73090-RT; 99283